=== PATIENT | male | born 1985 | race Two or more races ===

== ENCOUNTER 2023-10-01 11:56 | Outpatient (CLI) | payer OTHER, SELFPAY | END 2023-10-01 11:57 | disposition home or self-care (01) | PROVIDERS: Visit Provider Registered Nurse | DX: R10.9 Unspecified abdominal pain (principal) | CPT/HCPCS: 80076; 83690 ==

== ENCOUNTER 2023-10-21 08:30 | Emergency (ER) | payer OTHER, SELFPAY ==
[2023-10-21 08:45] VITALS: BP 141/94; PULSE 85; RESP 14; TEMP 37.1; O2SAT 99
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
--- NOTE | 2023-10-21 09:26 | CRLHL7_ITS ---
For Patients: As a result of the Century Cures Act, medical imaging exams and procedure reports are released immediately into your electronic medical record. You may view this report before your referring provider. If you have questions, please contact your health care provider. INDICATION: Chest and back pain COMPARISON: None. TECHNIQUE: 1 view chest radiograph. FINDINGS: Lung volumes are good. No focal consolidations. No pulmonary edema. No pleural effusion. No pneumothorax. No pneumomediastinum. Normal cardiomediastinal silhouette. Bones: Normal for age. Small metallic fragment projecting over the right upper hemithorax may be external to the patient. IMPRESSION: Lungs clear. No acute appearing abnormalities. Dictated by Julia Garcia MD @ 10/21/2023 10:00:19 AM (Electronically Signed)
[2023-10-21 09:47] LABS: Basophils Absolute Auto 0.03 K/uL (0.00-0.30); Basophils Percent Auto 0.4 % (0.0-3.0); Eosinophils Absolute Auto 0.14 K/uL (0.00-0.50); Eosinophils Percent Auto 1.8 % (0.0-7.0); Hematocrit 52.4 % (37.0-53.0); Hemoglobin* 17.1 gm/dL (13.5-17.5); Lymphocytes Absolute Auto 2.05 K/uL (0.90-2.90); Lymphocytes Percent Auto 26.9 % (20-44); Mean Corpuscular HGB Conc 33 gm/dL (32-36); Mean Corpuscular Hemoglobin 31 pg (26-34); Mean Corpuscular Volume 96 fL (80-100); Neutrophils Absolute Auto 4.93 K/uL (1.7-7.0); Neutrophils Percent Auto 64.9 % (42.0-72.0); Platelet Count* 245 K/uL (140-440); RDW Coefficient of Variation % 12.5 % (11.5-15.5); Red Blood Count 5.46 m/uL (4.30-5.90); White Blood Count* 7.61 K/uL (4.50-11.00)
[2023-10-21] MEDS: KETOROLAC 15 MG/ML inj IVP (09:52)
[2023-10-21 09:53] LABS: Slide Review Reflex No
[2023-10-21 10:02] LABS: Albumin* 4.9 g/dL (3.3-5.0); Chloride* 102 mmol/L (96-114); Sodium* 139 mmol/L (135-149)
[2023-10-21 10:03] LABS: Potassium* 4.7 mmol/L (3.6-5.1)
[2023-10-21 10:05] LABS: Bilirubin Total* 0.6 mg/dL (0.1-1.5); Creatinine* 0.9 mg/dL (0.5-1.5); Estimated Glomerular Filt Rate 112 ml/min
[2023-10-21 10:06] LABS: Alanine Aminotransferase* 35 U/L (4-50); Alkaline Phosphatase* 68 U/L (40-150); Anion Gap 7 mEq/L (7-15); Aspartate Amino Transferase* 29 U/L (12-35); Blood Urea Nitrogen* 13 mg/dL (5-24); Calcium* 9.5 mg/dL (8.4-10.6); Carbon Dioxide* 30 mmol/L (20-32); Glucose* 108 mg/dL (60-115); Lipase* 51 U/L (23-300); Total Protein* 8.6 g/dL (6.0-8.3)
[2023-10-21 10:12] LABS: D Dimer Quantitative* 0.35 ug/ml (0.00-0.50)
[2023-10-21 10:20] LABS: C Reactive Protein* < 0.5 mg/dL (0.5-1.0)
[2023-10-21 10:29] VITALS: BP 129/87; PULSE 68; RESP 14; O2SAT 97
[2023-10-21 10:32] VITALS: O2SAT 94
[2023-10-21 10:42] LABS: Amorphous Sediment Urine Few; RBC Urine 0-2 (0-2); Squamous Epithelial Cell Urine Few (None-Few); WBC Urine 0-2 (0-5)
[2023-10-21 11:00] VITALS: PULSE 65; O2SAT 96
[2023-10-21 11:08] LABS: Erythrocyte SedimentationRate* 4 mm/hr (2-15)
[2023-10-21 12:00] VITALS: PULSE 65; O2SAT 97
[2023-10-21 12:06] LABS: Troponin, Point-of-Care* 0.01 ng/ml (0.01-0.04)
[2023-10-21 12:28] VITALS: BP 141/94; PULSE 85; RESP 14; TEMP 37.1
== END 2023-10-21 12:30 | disposition home or self-care (01) ==
PROVIDERS: Emergency Provider Family Medicine
DX: R07.9 Chest pain, unspecified (principal); M54.6 Pain in thoracic spine; R51.9 Headache, unspecified
CPT/HCPCS: 36415; 71045; 80053; 81015; 83690; 84484; 85025; 85379; 85651; 86140; 93005; 94761; 96374; 99284; 99285; J1885

== ENCOUNTER 2023-11-13 23:41 | Outpatient (CLI) | payer OTHER, SELFPAY | END 2023-11-13 23:42 | disposition home or self-care (01) | LOC: AMB 11-14 10:37 | PROVIDERS: Visit Provider Family Medicine | DX: R07.89 Other chest pain (principal) | CPT/HCPCS: A0425; A0427 ==

== ENCOUNTER 2023-11-14 00:09 | Emergency (ER) | payer OTHER, SELFPAY ==
[2023-11-14] VITALS (7 sets, daily range): BP systolic 121–156; BP diastolic 74–93; PULSE 68–82; RESP 18; TEMP 36.9; O2SAT 95–97; BMI 27.3
--- NOTE | 2023-11-14 00:36 | CRLHL7_ITS ---
For Patients: As a result of the Century Cures Act, medical imaging exams and procedure reports are released immediately into your electronic medical record. You may view this report before your referring provider. If you have questions, please contact your health care provider. INDICATION: Chest pain. TECHNIQUE: Chest 2 views. COMPARISON: 10/21/2023. FINDINGS: Cardiovascular and mediastinum: Heart size and vasculature are normal in caliber and appearance. Lungs and pleural spaces: Lungs are clear. No sign of infiltrate or mass. No sign of pleural effusion. No pneumothorax. Bones and soft tissues: No significant findings. IMPRESSION: No acute cardiopulmonary abnormality. Dictated by Anton Fernandez MD @ 11/14/2023 2:13:50 AM (Electronically Signed)
--- NOTE | 2023-11-14 00:37 | ED_ITS ---
HPI - General Adult General Date Seen: 11/14/23 Chief complaint: Chest Pain Stated complaint: chest pain Time Seen by Provider: 11/14/23 00:11 Source: patient, EMS and RN notes reviewed Mode of arrival: EMS Limitations: language barrier History of Present Illness HPI narrative: Patient is a 38-year-old male with a history of alcoholism, currently living in an inpatient rehab center, he states sober for 3 months. He is Irish speaking, behaviour support teacher assistance was used for obtaining HPI. He developed chest pain about an hour and a half prior to coming in, comes in by ambulance. Pain i s central chest, sharp, no respiratory complaints, nausea, vomiting, no fevers, cough, or other respiratory symptoms. Medics gave him aspirin and nitroglycerin. No cardiac history, no other medical history. He does smoke. Related Data Home Medications Medication Instructions Recorded Confirmed ibuprofen .ROUTE 11/14/23 omeprazole 20 mg capsule,delayed 20 mg PO DAILY 11/14/23 11/14/23 release Allergies Allergy/AdvReac Type Severity Reaction Status Date / Time No Known Drug Allergies Allergy Verified 11/14/23 00:31 Review of Systems Status of ROS: Reports: 6 or more systems reviewed and unremarkable except as noted in History and below PFSH PFSH Social History Smoking Status: Current every day smoker What tobacco products do you use: cigarettes Do you use any of these nicotine containing products: None Second hand tobacco smoke exposure: No How often do you have a drink containing alcohol: never How often do you have six or more drinks on one occasion: Never AUDIT-C Alcohol total score: 0 Non-prescribed substance use: denies use Exam Narrative: Exam Narrative: Vital signs as noted above. In general, an alert, well-appearing patient. Head: Normocephalic, atraumatic. Eyes: Pupils are equal reactive. Extraocular movements are full. Conjunctivae are normal. ENT: Mucous membranes are moist. Neck: Supple without lymphadenopathy. Heart: Regular rate and rhythm. No murmur or rub. Lungs: Clear bilaterally. No increased work of breathing, crackles or wheezes. Abdomen: Soft and nontender. No organomegaly. Extremities: Well perfused. No edema. No calf tenderness. Pulses intact. Neurologic: Patient is alert and oriented to person and place. Speech is fluent. Face is symmetric. Moves all extremities equally. Affect: Normal. Skin: Warm and dry. Well perfused. Const: Vital Signs, click to edit/add: Vital Signs - 24 hr 11/14/23 00:12 11/14/23 00:36 11/14/23 00:40 Temperature 98.5 F Pulse Rate 80 Pulse Rate [Pulse Oximeter] 82 Respiratory Rate 18 Blood Pressure Blood Pressure [Ri ght Upper Arm] 156/93 H Pulse Oximetry 96 96 95 Oxygen Delivery Me thod Room Air Room Air 11/14/23 01:00 11/14/23 01:01 11/14/23 01:31 Temperature Pulse Rate 72 77 68 Pulse Rate [Pulse Oximeter] Respiratory Rate Blood Pressure 126/84 122/74 Blood Pressure [Ri ght Upper Arm] Pulse Oximetry 95 95 96 Oxygen Delivery Me thod 11/14/23 02:01 Temperature Pulse Rate 74 Pulse Rate [Pulse Oximeter] Respiratory Rate Blood Pressure 121/85 Blood Pressure [Ri ght Upper Arm] Pulse Oximetry 97 Oxygen Delivery Me thod Documenting provider has reviewed patient's vital signs: yes Course Course ED Course: On arrival, patient had an EKG which shows ST elevation with J-point elevation in V2, otherwise no unusual findings, ST segments are otherwise normal, T-waves are unremarkable. Initial troponin is 0. Chest x-ray by my review is negative, final radiology read is likewise negative. He did not note any improvement with nitroglycerin and requested something for pain, had Toradol IV. A 2 hour troponin is also 0 and other labs are unremarkable including a normal white blood cell count, normal metabolic panel, normal LFTs and lipase. Discussed with him that the cause for his chest pain is not entirely clear but I do not see evidence of acute coronary syndrome, pneumonia, pneumothorax, pericarditis, pancreatitis, cholecystitis, biliary colic or other acute concerning cause. Would recommend trial of anti- inflammatories over the next couple of days, primary care follow-up in the next week for recheck and to determine whether further evaluation is needed. Vital Signs Vital signs: Initial Vital Signs Respiratory Effort Normal, Spontaneous, Non-Labored 11/14/23 00:10 Respiratory Depth Normal 11/14/23 00:10 Respiratory Pattern Normal 11/14/23 00:10 Vital Signs Temperature 98.5 F 11/14/23 00:12 Pulse Rate 82 11/14/23 00:12 Respiratory Rate 18 11/14/23 00:12 Blood Pressure 156/93 H 11/14/23 00:12 Pulse Oximetry 96 11/14/23 00:12 Oxygen Delivery Method Room Air 11/14/23 00:12 Temperature 98.5 F 11/14/23 00:12 Pulse Rate 74 11/14/23 02:01 Respiratory Rate 18 11/14/23 00:12 Blood Pressure 121/85 11/14/23 02:01 Pulse Oximetry 97 11/14/23 02:01 Oxygen Delivery Method Room Air 11/14/23 00:40 Medications Administered Medications: Discontinued Medications Generic Name Dose Route Start Last Admin Trade Name Freq PRN Reason Stop Dose Admin Ketorolac Tromethamine 15 mg 11/14/23 02:25 11/14/23 02:29 Ketorolac 15 Mg/Ml Inj IVP 11/14/23 02:26 15 mg ONCE ONE Administration Medical Decision Making Lab Data Labs: Lab Results 11/14/23 11/14/23 11/14/23 Range/Units 00:15 00:20 02:25 WBC 9.56 (4.50-11.00) K/uL RBC 4.91 (4.30-5.90) m/uL Hgb 15.7 (13.5-17.5) gm/dL Hct 46.4 (37.0-53.0) % MCV 95 (80-100) fL MCH 32 (26-34) pg MCHC 34 (32-36) gm/dL RDW Coeff of Sharmaine 12.1 (11.5-15.5) % Plt Count 231 (140-440) K/uL Neut % (Auto) 43.5 (42.0-72.0) % Lymph % (Auto) 43.1 (20-44) % [place] % (Auto) 9.9 (0.0-11.0) % Eos % (Auto) 2.6 (0.0-7.0) % Baso % (Auto) 0.4 (0.0-3.0) % Neut # (Auto) 4.15 (1.7-7.0) K/uL Lymph # (Auto) 4.12 H (0.90-2.90) K/uL [place] # (Auto) 0.90 (0.00-0.90) K/UL Eos # (Auto) 0.25 (0.00-0.50) K/uL Baso # (Auto) 0.04 (0.00-0.30) K/uL Abs Immat Gran (auto) 0.05 (0.00-0.30) K/uL Imm/Tot Granulo (auto) 0.5 % Sodium 134 L (135-149) mmol/L Potassium 3.8 (3.6-5.1) mmol/L Chloride 105 (96-114) mmol/L Carbon Dioxide 21 (20-32) mmol/L Anion Gap 8 (7-15) mEq/L BUN 18 (5-24) mg/dL Creatinine 0.8 (0.5-1.5) mg/dL Estimated Creat Clear 129.27 Estimated GFR 116 ml/min Glucose 112 (60-115) mg/dL Calcium 9.0 (8.4-10.6) mg/dL Total Bilirubin 0.3 (0.1-1.5) mg/dL Direct Bilirubin 0.0 (0.0-0.5) mg/dL AST 23 (12-35) U/L ALT 30 (4-50) U/L Alkaline Phosphatase 81 (40-150) U/L Total Protein 7.5 (6.0-8.3) g/dL Albumin 4.7 (3.3-5.0) g/dL Lipase 91 (23-300) U/L POC Troponin I 0.00 L 0.00 L (0.01-0.04) ng/ml Discharge Plan Discharge Clinical Impression: Chest pain Patient Disposition: Home, Self-Care Condition: Stable Instructions: Chest Pain (DC) Additional Instructions: All of your testing today is reassuring. An exact cause for her chest pain is not clear at this time. I would recommend primary care follow-up in the next week or so for recheck and to determine whether further testing is indicated. Return at any time for severe or new symptoms. ------ Todas isidro pruebas de hoy son tranquilizadoras. La causa exacta de delgado dolor en el pecho no est? pat en thea momento. Recomendar?a un seguimiento de atenci?n primaria en la pr?xima semana m?s o menos para volver a verificarlo y determinar si est? indicado realizar m?s pruebas. Regrese en cualquier momento si presenta s?ntomas graves o nuevos. Prescriptions: No Action ibuprofen .ROUTE omeprazole 20 mg capsule,delayed release(DR/EC) 20 mg PO DAILY Follow Up/Referrals: Provider,Not a Local [Primary Care Provider] - Stand Alone Forms: [facility] Info Inst[facility]
[2023-11-14 00:42] LABS: Albumin* 4.7 g/dL (3.3-5.0); Basophils Absolute Auto 0.04 K/uL (0.00-0.30); Basophils Percent Auto 0.4 % (0.0-3.0); Eosinophils Absolute Auto 0.25 K/uL (0.00-0.50); Eosinophils Percent Auto 2.6 % (0.0-7.0); Hematocrit 46.4 % (37.0-53.0); Hemoglobin* 15.7 gm/dL (13.5-17.5); Immature Granulocytes Abs Auto 0.05 K/uL (0.00-0.30); Immature Granulocytes Pct Auto 0.5 %; Lymphocytes Absolute Auto 4.12 K/uL (0.90-2.90); Lymphocytes Percent Auto 43.1 % (20-44); Mean Corpuscular HGB Conc 34 gm/dL (32-36); Mean Corpuscular Hemoglobin 32 pg (26-34); Mean Corpuscular Volume 95 fL (80-100); Monocytes Percent Auto 9.9 % (0.0-11.0); Neutrophils Absolute Auto 4.15 K/uL (1.7-7.0); Neutrophils Percent Auto 43.5 % (42.0-72.0); Platelet Count* 231 K/uL (140-440); RDW Coefficient of Variation % 12.1 % (11.5-15.5); Red Blood Count 4.91 m/uL (4.30-5.90); White Blood Count* 9.56 K/uL (4.50-11.00)
[2023-11-14 00:44] LABS: Slide Review Reflex No
[2023-11-14 01:24] LABS: Alanine Aminotransferase* 30 U/L (4-50); Alkaline Phosphatase* 81 U/L (40-150); Aspartate Amino Transferase* 23 U/L (12-35); Bilirubin Total* 0.3 mg/dL (0.1-1.5); Lipase* 91 U/L (23-300); Total Protein* 7.5 g/dL (6.0-8.3)
[2023-11-14 01:30] LABS: Anion Gap 8 mEq/L (7-15); Blood Urea Nitrogen* 18 mg/dL (5-24); Carbon Dioxide* 21 mmol/L (20-32); Chloride* 105 mmol/L (96-114); Creatinine* 0.8 mg/dL (0.5-1.5); Est. Creatinine Clearance* 129.27; Estimated Glomerular Filt Rate 116 ml/min; Potassium* 3.8 mmol/L (3.6-5.1); Sodium* 134 mmol/L (135-149)
[2023-11-14 01:31] LABS: Glucose* 112 mg/dL (60-115)
[2023-11-14] MEDS: KETOROLAC 15 MG/ML inj IVP (02:29)
== END 2023-11-14 03:05 | disposition home or self-care (01) ==
PROVIDERS: Emergency Provider Emergency Medicine
DX: R07.9 Chest pain, unspecified (principal)
CPT/HCPCS: 36415; 71046; 80048; 80076; 83690; 84484; 85025; 93005; 94761; 96374; 99284; 99285; J1885

== ENCOUNTER 2023-11-14 13:29 | Outpatient (CLI) | payer OTHER, SELFPAY | END 2023-11-14 13:30 | disposition home or self-care (01) | LOC: AMB 11-28 16:57 | PROVIDERS: Visit Provider Emergency Medicine | DX: R07.89 Other chest pain (principal) | CPT/HCPCS: A0425; A0427 ==

== ENCOUNTER 2023-11-14 13:56 | Emergency (ER) | payer OTHER, SELFPAY ==
[2023-11-14 14:03] VITALS: BP 135/87; PULSE 80; RESP 18; TEMP 37.1; O2SAT 95; BMI 25.0
[2023-11-14 14:31] VITALS: PULSE 66; O2SAT 96
--- NOTE | 2023-11-14 14:56 | CRLHL7_ITS ---
For Patients: As a result of the Cures Act, medical imaging exams and procedure reports are released immediately into your electronic medical record. You may view this report before your referring provider. If you have questions, please contact your health care provider. INDICATION: Chest pain. TECHNIQUE: Chest 1 views. COMPARISON: November 14, 2023. FINDINGS: Cardiovascular and mediastinum: Heart size and vasculature are normal in caliber and appearance. Lungs and pleural spaces: Lungs are clear. No sign of infiltrate or mass. No sign of pleural effusion. No pneumothorax. Bones and soft tissues: No significant findings. IMPRESSION: No acute findings and no significant changes from the prior exam. Dictated by Richmond Fong MD @ 11/14/2023 4:37:18 PM (Electronically Signed)
[2023-11-14 15:34] LABS: Basophils Absolute Auto 0.02 K/uL (0.00-0.30); Basophils Percent Auto 0.2 % (0.0-3.0); Eosinophils Absolute Auto 0.07 K/uL (0.00-0.50); Eosinophils Percent Auto 0.8 % (0.0-7.0); Hematocrit 46.3 % (37.0-53.0); Hemoglobin* 15.7 gm/dL (13.5-17.5); Immature Granulocytes Abs Auto 0.02 K/uL (0.00-0.30); Immature Granulocytes Pct Auto 0.2 %; Lymphocytes Absolute Auto 1.88 K/uL (0.90-2.90); Mean Corpuscular HGB Conc 34 gm/dL (32-36); Mean Corpuscular Hemoglobin 32 pg (26-34); Mean Corpuscular Volume 95 fL (80-100); Monocytes Percent Auto 8.2 % (0.0-11.0); Neutrophils Absolute Auto 5.84 K/uL (1.7-7.0); Neutrophils Percent Auto 68.6 % (42.0-72.0); Platelet Count* 98 K/uL (140-440); RDW Coefficient of Variation % 12.1 % (11.5-15.5); White Blood Count* 8.53 K/uL (4.50-11.00)
[2023-11-14 15:44] LABS: Chloride* 103 mmol/L (96-114); Potassium* 3.9 mmol/L (3.6-5.1); Sodium* 134 mmol/L (135-149)
[2023-11-14 15:47] LABS: Anion Gap 10 mEq/L (7-15); Blood Urea Nitrogen* 11 mg/dL (5-24); Carbon Dioxide* 21 mmol/L (20-32); Creatinine* 0.7 mg/dL (0.5-1.5); Est. Creatinine Clearance* 129.12; Estimated Glomerular Filt Rate 121 ml/min; Glucose* 90 mg/dL (60-115)
[2023-11-14 15:59] LABS: Slide Review Reflex Yes
[2023-11-14 16:00] LABS: Slide Review Acceptable Review (Acceptable)
[2023-11-14 16:01] LABS: Troponin I* < 0.01 ng/mL (0.01-0.04)
--- NOTE | 2023-11-14 16:21 | ED.CHESTPAIN ---
HPI - Chest Pain General Date Seen: 11/14/23 Chief Complaint: Chest Pain Stated Complaint: Chest pain Time Seen by Provider: 11/14/23 14:15 Source: patient Mode of arrival: ambulatory Limitations: no limitations History of Present Illness HPI narrative: Patient is a 38-year-old male with no pertinent medical problems presenting to the emergency department for chest pain. Patient was here in the emergency department late last night for the same symptoms and was seen by the ED provider. Full workup was done and showed no concerning findings and was discharged home. He states the symptoms persisted and he is still having the same chest pain now. States that has not changed. Nothing seems to make it better or worse. Does note his chest hurts when he pushes on it. Pain is the midsternal region and does not radiate. Says is a sharp sensation. Denies fevers, chills, cough, headache, vision changes, shortness of breath, diarrhea, constipation. Is not aware of any sick contacts. Related Data Home Medications Medication Instructions Recorded Confirmed ibuprofen .ROUTE 11/14/23 omeprazole 20 mg capsule,delayed 20 mg PO DAILY 11/14/23 11/14/23 release Allergies Allergy/AdvReac Type Severity Reaction Status Date / Time No Known Drug Allergies Allergy Verified 11/14/23 00:31 Review of Systems Status of ROS Reports: 10 or more systems reviewed and unremarkable except as noted in History and below PFSH [facility] Social History Smoking Status: Current every day smoker What tobacco products do you use: cigarettes Do you use any of these nicotine containing products: None Second hand tobacco smoke exposure: No How often do you have a drink containing alcohol: never How often do you have six or more drinks on one occasion: Never AUDIT-C Alcohol total score: 0 Non-prescribed substance use: denies use Exam Narrative Exam Narrative: Const: Well-nourished, Well-developed, in mild distress Eyes: PERRL, no conjunctival injection, and symmetrical lids HENT: Atraumatic external nose and ears. Moist mucous membranes. Neck: Symmetric, trachea midline, No thyromegaly. CVS: RRR, No murmurs or gallops. Peripheral pulses 2+ and equal in all extremities RESP: Unlabored respiratory effort. Clear to auscultation bilaterally. GI: Nontender/Nondistended, No rebound or guarding. MSK:Extremities w/o deformity, Normal Active ROM tenderness to palpation of chest Skin: Warm, Dry. No rashes or lesions. Neuro: Normal Muscle tone, No focal neurological deficits. Psych: Awake, Alert, & Oriented x3. Appropriate mood and affect. Const Vital Signs, click to edit/add: Vital Signs - 24 hr 11/14/23 14:03 Temperature 98.8 F Pulse Rate [Right Pulse Oximeter] 80 Respiratory Rate 18 Blood Pressure [Right Upper Arm] 135/87 Pulse Oximetry 95 Oxygen Delivery Method Room Air Course Vital Signs Vital signs: Initial Vital Signs Temperature 98.8 F 11/14/23 14:03 Temperature Source Temporal Artery Scan 11/14/23 14:03 Pulse Rate 80 11/14/23 14:03 Respiratory Rate 18 11/14/23 14:03 Blood Pressure 135/87 11/14/23 14:03 Blood Pressure Mean 103 11/14/23 14:03 Blood Pressure Position Sitting 11/14/23 14:03 Pulse Oximetry 95 11/14/23 14:03 Oxygen Delivery Method Room Air 11/14/23 14:03 Vital Signs Temperature 98.8 F 11/14/23 14:03 Pulse Rate 80 11/14/23 14:03 Respiratory Rate 18 11/14/23 14:03 Blood Pressure 135/87 11/14/23 14:03 Pulse Oximetry 95 11/14/23 14:03 Oxygen Delivery Method Room Air 11/14/23 14:03 Temperature 98.8 F 11/14/23 14:03 Pulse Rate 80 11/14/23 14:03 Respiratory Rate 18 11/14/23 14:03 Blood Pressure 135/87 11/14/23 14:03 Pulse Oximetry 95 11/14/23 14:03 Oxygen Delivery Method Room Air 11/14/23 14:03 MDM - Chest Pain MDM Narrative Medical decision making narrative: Patient is a 38-year-old male presenting for the 2nd day in a row for chest pain. He is PERC negative and PE is unlikely. Had 2 troponins done early this morning that were negative. Rest was lab work was normal also. Will repeat a chest x-ray to see if he has since developed pneumonia or a pneumothorax that might be easier to say this afternoon. Very unlikely to be an aortic dissection at this time. Lab work all returned showing no concerning abnormalities this is his 3rd troponin now today and do not believe it is necessary to do a 4th. EKG shows no concerning findings. Lab Data Labs: Lab Results 11/14/23 Range/Units 15:23 WBC 8.53 (4.50-11.00) K/uL RBC 4.90 (4.30-5.90) m/uL Hgb 15.7 (13.5-17.5) gm/dL Hct 46.3 (37.0-53.0) % MCV 95 (80-100) fL MCH 32 (26-34) pg MCHC 34 (32-36) gm/dL RDW Coeff of Sharmaine 12.1 (11.5-15.5) % Plt Count 98 L (140-440) K/uL Neut % (Auto) 68.6 (42.0-72.0) % Lymph % (Auto) 22.0 (20-44) % [place] % (Auto) 8.2 (0.0-11.0) % Eos % (Auto) 0.8 (0.0-7.0) % Baso % (Auto) 0.2 (0.0-3.0) % Neut # (Auto) 5.84 (1.7-7.0) K/uL Lymph # (Auto) 1.88 (0.90-2.90) K/uL [place] # (Auto) 0.70 (0.00-0.90) K/UL Eos # (Auto) 0.07 (0.00-0.50) K/uL Baso # (Auto) 0.02 (0.00-0.30) K/uL Abs Immat Gran (auto) 0.02 (0.00-0.30) K/uL Imm/Tot Granulo (auto) 0.2 % Diff Slide Review Acceptable Review (Acceptable) Sodium 134 L (135-149) mmol/L Potassium 3.9 (3.6-5.1) mmol/L Chloride 103 (96-114) mmol/L Carbon Dioxide 21 (20-32) mmol/L Anion Gap 10 (7-15) mEq/L BUN 11 (5-24) mg/dL Creatinine 0.7 (0.5-1.5) mg/dL Estimated Creat Clear 129.12 Estimated GFR 121 ml/min Glucose 90 (60-115) mg/dL Calcium 9.0 (8.4-10.6) mg/dL Troponin I < 0.01 L (0.01-0.04) ng/mL ECG Data Attestation: I personally reviewed and interpreted this ECG as follows: Interpretation: Normal sinus rhythm with a rate of 78 beats per minute, normal intervals, normal axis, no T-wave abnormalities. Persistent they seen elevated J-point in V2 Appears similar to EKG earlier this morning Discharge Plan Discharge Clinical Impression: Chest pain Patient Disposition: Home, Self-Care Condition: Stable Instructions: Chest Wall Pain (ED) Additional Instructions: Your chest pain appears to be musculoskeletal in nature. Heart and lungs show no signs of emergent conditions. Take Tylenol and ibuprofen for pain Prescriptions: No Action ibuprofen .ROUTE omeprazole 20 mg capsule,delayed release(DR/EC) 20 mg PO DAILY Follow Up/Referrals: Provider,Not a Local [Primary Care Provider] - Stand Alone Forms: [employer] Info Instructions
[2023-11-14 16:30] VITALS: BP 123/83; PULSE 71; RESP 18; O2SAT 98
[2023-11-14] MEDS: KETOROLAC 15 MG/ML inj IVP (17:05)
== END 2023-11-14 17:13 | disposition home or self-care (01) ==
PROVIDERS: Emergency Provider Student in an Organized Health Care Education/Training Program
DX: R07.9 Chest pain, unspecified (principal)
CPT/HCPCS: 36415; 71045; 80048; 84484; 85025; 93005; 96374; 99283; 99284; 99285; J1885